=== PATIENT | male | born 1970 ===

== ENCOUNTER 2017-09-26 10:40 | Emergency (ER) | payer OTHER ==
[2017-09-26 10:44] VITALS: BMI 27.3
[2017-09-26] MEDS ORDERED: TDAP Vaccine 0.5 mL Syr IM ONE (10:47)
[2017-09-26] MEDS ORDERED: LIDOCAIN/EPI 1-0.001% 10ML INJ SOL IJ ONE (10:51)
--- NOTE | 2017-09-26 10:58 | ED PDOC ---
Arrival/HPI - General Chief Complaint: Abnormal Skin Integrity Time Seen by Provider: 09/26/17 10:43 Historian: Patient - History of Present Illness Narrative History of Present Illness (Text): 09/26/17 10:52 47 year old male, with no significant past medical history, presents to the emergency department with lacerations to the posterior left shoulder. 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 Patient states debris fell during the process and landed on his upper back. Patient states he thinks it was fiberglass debris. Patient states he feels no headache and is not on any medication. Patient also denies any fever, chills, dizziness, chest pain, shortness of breath, cough, abdominal pain, nausea, vomiting, diarrhea, urinary/ bowel changes, or any other complaint. Time/Duration: Prior to Arrival Symptom Onset: Sudden Symptom Course: Unchanged Activities at Onset: Light Context: Work Past Medical History - Infectious Disease Hx of Infectious Diseases: None - Cardiac Hx Cardiac Disorders: No - Pulmonary Hx Respiratory Disorders: No - Genitourinary/Gynecological Hx Genitourinary Disorders: No - Psychiatric Hx Substance Use: No - Anesthesia Hx Anesthesia: No Family/Social History Smoking Status: Unknown If Ever Smoked Hx Alcohol Use: No Hx Substance Use: No Allergies/Home Meds Allergies/Adverse Reactions: Allergies No Known Allergies Allergy (Verified 09/26/17 10:44) Review of Systems - Physician Review All systems were reviewed & negative as marked: Yes - Review of Systems Constitutional: Normal. absent: Fevers, Night Sweats Eyes: Normal ENT: Normal Respiratory: Normal. absent: SOB, Cough Cardiovascular: Normal. absent: Chest Pain Gastrointestinal: Normal. absent: Abdominal Pain, Diarrhea, Nausea, Vomiting Genitourinary Male: Normal. absent: Urinary Output Changes Musculoskeletal: Normal Skin: Laceration (Left back and shoulder) Neurological: Normal. absent: Headache, Dizziness Endocrine: Normal Hemo/Lymphatic: Normal Psychiatric: Normal Physical Exam Vital Signs Reviewed: Yes Vital Signs Temp Pulse Resp BP Pulse Ox 09/26/17 14:04 98.0 F 96 H 18 150/60 97 09/26/17 14:03 98.0 F 96 H 18 150/60 97 09/26/17 10:58 98.5 F 109 H 20 191/101 H 99 Temperature: Afebrile Blood Pressure: Normal Pulse: Regular Respiratory Rate: Normal Appearance: Positive for: Well-Appearing, Non-Toxic, Comfortable Pain Distress: None Mental Status: Positive for: Alert and Oriented X 3 - Systems Exam Head: Present: Atraumatic, Normocephalic Pupils: Present: PERRL Extroacular Muscles: Present: EOMI Conjunctiva: Present: Normal Mouth: Present: Moist Mucous Membranes Neck: Present: Normal Range of Motion Respiratory/Chest: Present: Clear to Auscultation, Good Air Exchange. No: Respiratory Distress, Accessory Muscle Use Cardiovascular: Present: Regular Rate and Rhythm, Normal S1, S2. No: Murmurs Abdomen: No: Tenderness, Distention, Peritoneal Signs Back: Present: Normal Inspection Upper Extremity: Present: Normal Inspection. No: Cyanosis, Edema Lower Extremity: Present: Normal Inspection. No: Edema Neurological: Present: GCS=15, CN II-XII Intact, Speech Normal Skin: Present: Warm, Dry, Normal Color, Laceration. No: Rashes Psychiatric: Present: Alert, Oriented x 3, Normal Insight, Normal Concentration Medical Decision Making ED Course and Treatment: 09/26/17 10:59 Impression: 47 year old male presents to the emergency department with lacerations to the back of his upper left shoulder. Plan: -- CT cervical spine -- Chest X-ray -- TDAP -- Reassess and disposition Prior Visits: Notes and results from previous visits were reviewed. Progress Notes: 09/26/17 11:28 Chest X-ray reviewed by radiologist, shows: No active disease 09/26/17 11:38 CT HEAD reviewed by radiologist, shows: No acute intracranial abnormality. 09/26/17 11:51 CT Cervical Spine reviewed by radiologist, shows: No acute findings related to/accounting for the clinical presentation. 09/26/17 15:[address] girard and surgical coordinator as laceration appears deep. wound irrigated and closed by surgical coordinator with packing. request return for wound check. strict return precautions advseid. - RAD Interpretation Radiology Orders: 09/26/17 10:44 CERVICAL SPINE W/O CONTRAST [CT] Stat CXR [CHEST PORTABLE] [RAD] Stat 09/26/17 11:02 HEAD W/O CONTRAST [CT] Stat - Medication Orders Current Medication Orders: Discontinued Medications Tetanus/Reduced Diphtheria/Acell Pertussis (Boostrix Vaccine Inj) 0.5 ml IM .ONCE ONE Stop: 09/26/17 10:48 Last Admin: 09/26/17 12:40 Dose: 0.5 ml Immunization Registry Document 09/26/17 12:40 [email or web address] (Rec: 09/26/17 12:42 [email or web address] [id number]) Immunization Registry Consent Date 09/26/17 - Scribe Statement The provider has reviewed the documentation as recorded by the Popibbhavin Meade Provider Scribe Attestation: All medical record entries made by the Scribe were at my direction and personally dictated by me. I have reviewed the chart and agree that the record accurately reflects my personal performance of the history, physical exam, medical decision making, and the department course for this patient. I have also personally directed, reviewed, and agree with the discharge instructions and disposition. Disposition/Present on Arrival - Present on Arrival History of DVT/PE: No History of Uncontrolled Diabetes: No Urinary Catheter: No History of Decub. Ulcer: No History Surgical Site Infection Following: None - Disposition Diagnosis: Laceration Disposition: HOME/ ROUTINE Condition: STABLE Discharge Instructions (ExitCare): Laceration Repair, Wound Care Additional Instructions: please follow up with your doctor/clinic. return to er on friday for wound check. return immediately with any worsening symptoms or concerns. Prescriptions: Sulfamethoxazole/Trimethoprim [Bactrim DS 800 mg-160 mg] 1 tab PO BID #14 tab Referrals: PCP,NO [Primary Care Provider] - Follow up with primary Forms: [employer] (Togolese)
--- NOTE | 2017-09-26 11:26 | RAD ---
Date of service: 09/26/2017 HISTORY: trauma COMPARISON: No prior. FINDINGS: LUNGS: No active pulmonary disease. PLEURA: No significant pleural effusion identified, no pneumothorax apparent. CARDIOVASCULAR: Normal. OSSEOUS STRUCTURES: No significant abnormalities. VISUALIZED UPPER ABDOMEN: Normal. OTHER FINDINGS: None. IMPRESSION: No active disease.
--- NOTE | 2017-09-26 11:34 | CT ---
Date of service: 09/26/2017 PROCEDURE: CT HEAD WITHOUT CONTRAST. HISTORY: Trauma COMPARISON: None available. TECHNIQUE: Axial computed tomography images were obtained through the head/brain without intravenous contrast. Radiation dose: Total exam DLP = 829.98 mGy-cm. This CT exam was performed using one or more of the following dose reduction techniques: Automated exposure control, adjustment of the mA and/or kV according to patient size, and/or use of iterative reconstruction technique. FINDINGS: HEMORRHAGE: No intracranial hemorrhage. BRAIN: Baires-white matter differentiation is preserved. There is no mass, mass effect or abnormal extra-axial fluid collection. There is no territorial infarction. The midline sagittal structures are normal. VENTRICLES: The ventricles are normal in size, shape and configuration. CALVARIUM: There is no calvarial fracture or extracranial soft tissue swelling. PARANASAL SINUSES: There is a large retention cyst/ polyp in the right maxillary sinus and mild mucosal thickening in the left maxillary sinus. There is scattered mucosal thickening in the right frontal sinus and ethmoid air cells. The sphenoid sinuses are clear. MASTOID AIR CELLS: Unremarkable as visualized. No inflammatory changes. OTHER FINDINGS: None. IMPRESSION: No acute intracranial abnormality.
--- NOTE | 2017-09-26 11:43 | CT ---
Date of service: 09/26/2017 PROCEDURE: CT Cervical Spine without contrast HISTORY: Unspecified trauma COMPARISON: None available. TECHNIQUE: Axial computed tomography images were obtained of the cervical spine without the use of intravenous contrast. Coronal and sagittal reformatted images were created and reviewed. Radiation dose: Total exam DLP = 652.68 mGy-cm. This CT exam was performed using one or more of the following dose reduction techniques: Automated exposure control, adjustment of the mA and/or kV according to patient size, and/or use of iterative reconstruction technique. FINDINGS: VERTEBRAE: No fracture. Normal alignment. No destructive bony lesion. DISCS/SPINAL CANAL/NEURAL FORAMINA: No significant central canal or neural foraminal stenosis. Discs heights are grossly preserved. PARASPINAL SOFT TISSUES: Unremarkable. OTHER FINDINGS: None. IMPRESSION: No acute findings related to/accounting for the clinical presentation.
--- NOTE | 2017-09-26 12:04 | CP.PCM.PN ---
Subjective - Date & Time of Evaluation Date of Evaluation: 09/26/17 Time of Evaluation: 11:45 - Subjective Subjective: General Surgery consult note for Dr Quiros. Pt is a 47 yo male with no PMH who presents to the ED for a laceration to his posterior left shoulder. 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 The fiberglass struck him while he was working shortly before presenting to the ED. Pt reports that he only lost a minimal amount of blood. Pt states that the pain is sharp 5/10, worse with movement, and nothing makes it better or worse. Pt denies LOC, headache, fevers , chills, loss of motor function or sensation on his arms or torso. A 12 point ROS was obtained and pertinent positives/ negatives where appropriate. PMH: denies PSH: denies FH: reviewed and non contributory SH: denies tobacco, alcohol, drugs Home meds: denies Allergies: NKDA PMD: denies Objective - Vital Signs/Intake and Output Vital Signs (last 24 hours): Temp Pulse Resp BP Pulse Ox 98.5 F 109 H 20 191/101 H 99 09/26/17 10:58 09/26/17 10:58 09/26/17 10:58 09/26/17 10:58 09/26/17 10:58 - Constitutional Appears: No Acute Distress - Head Exam Head Exam: ATRAUMATIC, NORMOCEPHALIC - Eye Exam Eye Exam: EOMI - ENT Exam ENT Exam: Mucous Membranes Moist - Neck Exam Neck Exam: Full ROM - Respiratory Exam Respiratory Exam: Clear to Ausculation Bilateral, NORMAL BREATHING PATTERN. absent: Accessory Muscle Use, Rales, Wheezes, Respiratory Distress, Stridor - Cardiovascular Exam Cardiovascular Exam: REGULAR RHYTHM, RRR, +S1, +S2. absent: Bradycardia, Diastolic murmur, JVD - GI/Abdominal Exam GI & Abdominal Exam: Soft, Normal Bowel Sounds. absent: Firm, Guarding, Rigid, Tenderness, Rebound - Extremities Exam Extremities Exam: Full ROM, Normal Inspection. absent: Calf Tenderness, Pedal Edema - Back Exam Back Exam: absent: CVA tenderness (L), CVA tenderness (R) Additional comments: pt has 2 lacerations on left upper posterior shoulder - Neurological Exam Neurological Exam: Alert, Awake, Oriented x3 - Psychiatric Exam Psychiatric exam: Normal Affect, Normal Mood Assessment and Plan - Assessment and Plan (Free Text) Assessment: 47M with 2 lacerations on posterior shoulder Plan: - - D/w Dr Chula Jack PGY-1
--- NOTE | 2017-09-26 12:49 | CP.PCM.CON ---
History of Present Illness - History of Present Illness History of Present Illness: General Surgery consult note for Dr Quiros. Pt is a 47 yo male with no PMH who presents to the ED for a laceration to his posterior left shoulder. 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 The fiberglass struck him while he was working shortly before presenting to the ED. Pt reports that he only lost a minimal amount of blood. Pt states that the pain is sharp 5/10, worse with movement, and nothing makes it better or worse. Pt denies LOC, headache, fevers , chills, loss of motor function or sensation on his arms or torso. A 12 point ROS was obtained and pertinent positives/ negatives listed where appropriate. PMH: denies PSH: denies FH: reviewed and non contributory SH: denies tobacco, alcohol, drugs Home meds: denies Allergies: NKDA PMD: denies Review of Systems - Review of Systems Review of Systems: 12 point ROS obtained and added to HPI where appropriate Past Patient History - Infectious Disease Hx of Infectious Diseases: None - Past Social History Smoking Status: Unknown If Ever Smoked - CARDIAC Hx Cardiac Disorders: No - PULMONARY Hx Respiratory Disorders: No - GENITOURINARY/GYNECOLOGICAL Hx Genitourinary Disorders: No - PSYCHIATRIC Hx Substance Use: No - ANESTHESIA Hx Anesthesia: No Meds Home Medications: Home Medication List Medication Instructions Recorded Confirmed Type Sulfamethoxazole/Trimethoprim 1 tab PO BID #14 tab 09/26/17 Rx [Bactrim DS 800 mg-160 mg] Allergies/Adverse Reactions: Allergies Allergy/AdvReac Type Severity Reaction Status Date / Time No Known Allergies Allergy Verified 09/26/17 10:44 Physical Exam - Constitutional Appears: No Acute Distress - Head Exam Head Exam: ATRAUMATIC, NORMOCEPHALIC - Eye Exam Eye Exam: EOMI - ENT Exam ENT Exam: Mucous Membranes Moist - Respiratory Exam Respiratory Exam: Clear to Auscultation Bilateral, NORMAL BREATHING PATTERN. absent: Accessory Muscle Use, Rales, Rhonchi, Wheezes, Respiratory Distress, Stridor - Cardiovascular Exam Cardiovascular Exam: REGULAR RHYTHM, RRR, +S1, +S2. absent: Bradycardia, Diastolic murmur, Irregular Rhythm, JVD, Systolic Murmur - GI/Abdominal Exam GI & Abdominal Exam: Normal Bowel Sounds, Soft. absent: Distended, Firm, Guarding, Rebound, Rigid, Tenderness - Extremities Exam Extremities exam: Positive for: full ROM. Negative for: calf tenderness, pedal edema, tenderness - Back Exam Additional comments: 5cm x 3cm x 2cm laceration over left posterior shoulder with no active bleeding or debris noted in the wound. superficial skin abrasion noted below the laceration - Neurological Exam Neurological exam: Alert, Oriented x3 - Psychiatric Exam Psychiatric exam: Normal Affect, Normal Mood - Skin Skin Exam: Dry, Normal Color, Warm Results - Vital Signs Recent Vital Signs: Last Vital Signs Temp 98.5 F 09/26/17 10:58 Pulse 109 H 09/26/17 10:58 Resp 20 09/26/17 10:58 BP 191/101 H 09/26/17 10:58 Pulse Ox 99 09/26/17 10:58 Assessment & Plan - Assessment and Plan (Free Text) Assessment: 47M with lacerations on left posterior shoulder Plan: - irrigated wound, packed with iodoform, and closed with single vicryl suture -pt advised to return if fever, redness, or worsening of symptoms -f/u in clinic for wound care -D/w Dr Chula Jack PGY-1 - Date & Time Date: 09/26/17 Time: 12:30
[2017-09-26 14:04] VITALS: BP 150/60; PULSE 96; RESP 18; TEMP 98; O2SAT 97
== END 2017-09-26 14:05 | disposition home or self-care (01) ==
LOC: ED 10:40
DX: S41.012A Laceration without foreign body of left shoulder, initial encounter (principal); W20.8XXA Other cause of strike by thrown, projected or falling object, initial encounter; Y92.69 Other specified industrial and construction area as the place of occurrence of the external cause; Y99.0 Civilian activity done for income or pay; Z23 Encounter for immunization